=== PATIENT | female | born 1995 | race Hispanic/Latino ===

== ENCOUNTER 2018-09-24 09:04 | Inpatient (IN) | payer BC, OTHER ==
[~2018-09-24] VITALS: Ht 157.5 cm; Wt 53.3 kg
--- OUTSIDE RECORDS SUMMARY | 2018-09-24 09:07 | XMS REPORT | Clinical Summary ---
Author Author [facility] Organization [facility] Address Unknown Phone Unavailable Care Team Providers Care Front Attendant Name Role Phone Kike Wray MD PCP Allergies Comments Active Allergy Reactions Severity Noted Date Sulfamethoxazole-Trimetho Hives 04/07/2017 prim Medications End Date Status Medication Sig Dispensed Refills Start Date Active ferrous sulfate 325 (65 Take 325 mg 0 FE) MG tablet by mouth daily with breakfast. Active Problems Problem Noted Date IUGR (intrauterine growth restriction) affecting care of mother, third 05/01/2017 trimester, fetus 1 Oligohydramnios in third trimester 05/01/2017 37 weeks gestation of 05/01/2017 Immunizations Name Dates Previously Given Next Due FLUCELVAX QUAD PF (0.5mL 05/02/2017 syringe) Rho (D) Immune Globulin 05/02/2017 Tdap 05/02/2017, 11/08/2016 Family History Medical History Relation Name Comments No Known Problems Brother No Known Problems Father No Known Problems Maternal Grandfather No Known Problems Maternal Grandmother No Known Problems Paternal Grandfather No Known Problems Paternal Grandmother No Known Problems Sister Relation Name Status Comments Brother Alive Father Alive Maternal Grandfather Alive Maternal Grandmother Alive PTSD Mother Alive epilepsy Paternal Grandfather Alive Paternal Grandmother Alive Sister Alive Social History Date Tobacco Use Types Packs/Day Years Used Never Smoker Smokeless Tobacco: Never Used Alcohol Use Drinks/Week oz/Week Comments No Sex Assigned at Date Recorded Not on file Industry Job Start Date Occupation Not on file Not on file Not on file Travel End Travel History Travel Start No recent travel history available. Last Filed Vital Signs Not on file Plan of Treatment Health Maintenance Due Date Last Done Comments CHLAMYDIA SCREENING 11/25/2017 11/25/2016 INFLUENZA VACCINE 09/30/2018 05/02/2017 Results Not on fileafter 09/23/2017 Insurance Type Payer Benefit Subscriber ID Effective Phone Address Plan / Dates Group PPO BCBS BCBS xxxxxxxxxxxx 2015- CHOICE Present PPO/SENAIT CHAVEZ PPO Advance Directives Patient has advance care planning documents, and code status on file. For more i nformation, please contact: Kirk Blackwood [address] [place] [address] Date Inactivated Comments Code Status Date Activated 05/04/2017 6:53 PM Full Code 05/01/2017 4:26 PM Code Status decision reached by: Patient 04/08/2017 3:50 AM Full Code 04/07/2017 10:12 PM Code Status decision reached by: Patient
--- OUTSIDE RECORDS SUMMARY | 2018-09-24 09:07 | XMS REPORT ---
Author Author [facility] Address Unknown Phone Unavailable Care Team Providers Care Calender Operator Name Role Phone Unavailable Unavailable Problems This patient has no known problems. Allergies, Adverse Reactions, Alerts This patient has no known allergies or adverse reactions. Medications This patient has no known medications. Results Test Description Test Time Test Comments Text Results Atomic Results Result Comments US OB <14 WEEKS 2016-11-08 23:16:[address] [address]FOPKBASZMR IMAGING REPORTPatient Name: VU SRate of Service: [id number]: 21 Sex: F Order #: [id number] Room: ERDOB: 1995 X-Ray Number: [id number] Record Number: [id number] Hospital Number: [id number] Physician: JUAN VALDESOrdering Physician: TAPAN ARANGO OBSTETRICAL FIRST TRIMESTER 10:30 PMHistory: Back pain.Findings:There is a single living intrauterine at approximately 11 weeks6 daysFetal heart rate is 174 bpm.There is no subchorionic hemorrhage.The placenta is suboptimally assessed due to early gestational age.The amniotic fluid volume appears adequate.The ovaries were not visualized.IMPRESSION:Single living intrauterine at approximately 11 weeks 6 days. bycurrent sonographic measurements.Electronically Signed By: Leroy Caal M.D., 11/08/2016 11:14 PMLegally authenticated by SARA MCCLOUD 2016-11-08 23:14:19
[2018-09-24 09:32] LABS: BILIRUBIN,URINE SMALL (NEGATIVE); CLARITY,URINE SL CLOUDY (CLEAR); LEUKOCYTE ESTERASE ,URINE TRACE (NEGATIVE); NITRITE,URINE POSITIVE (NEGATIVE); PROTEIN,URINE DIPSTICK 2+ (NEGATIVE); URINE UROBILINOGEN 4 mg/dL (0.2 - 1)
[2018-09-24 09:33] LABS: COLOR,URINE ORANGE (YELLOW); KETONES,URINE 2+ (NEGATIVE)
[2018-09-24 09:38] LABS: BASOPHILS % 0.1 % (0.0-1.0); HEMATOCRIT 30.4 % (34.2-44.1); HEMOGLOBIN 8.5 g/dL (12.0-16.0); LYMPHOCYTES # (AUTO) 0.7 (1.0-3.2); MEAN CORPUSCULAR HEMOGLOBIN 19.8 pg (28-32); MEAN CORPUSCULAR VOLUME 70.7 fL (81-99); MONOCYTES # (AUTO) 0.6 (0.2-0.8); MONOCYTES % 5.4 % (4.4-11.3); NEUTROPHILS # (AUTO) 9.7 (2.1-6.9); NEUTROPHILS % 88.1 % (38.7-80.0); PLATELET COUNT 301 x10e3/uL (140-360); RED CELL DISTRIBUTION WIDTH 17.5 % (11.7-14.4)
[2018-09-24 09:47] LABS: ALANINE AMINOTRANSFERASE 13 IU/L (0-55); ALBUMIN 4.2 g/dL (3.5-5.0); ALBUMIN/GLOBULIN RATIO 1.1 (0.8-2.0); ALKALINE PHOSPHATASE 77 IU/L (40-150); ANION GAP 15.8 mmol/L (8-16); BLOOD UREA NITROGEN 9 mg/dL (7-26); BUN/CREATININE RATIO 9 (6-25); CALCIUM 9.7 mg/dL (8.4-10.2); CARBON DIOXIDE 21 mmol/L (22-29); CHLORIDE 104 mmol/L (98-107); CREATININE, SERUM 0.98 mg/dL (0.57-1.11); EST GLOMERULAR FILTRATION RATE > 60 ML/MIN (60-); GLUCOSE 108 mg/dL (74-118); POTASSIUM 3.8 mmol/L (3.5-5.1); SODIUM 137 mmol/L (136-145)
[2018-09-24 09:49] LABS: BACTERIA,URINE MODERATE /HPF; EPITHELIAL CELLS,URINE RARE /LPF; WBC,URINE (MAN) >50 /HPF (0-5)
[2018-09-24] MEDS ORDERED: SODIUM CHLORIDE 0.9% 1000ML 1,000 ML IV SCH (10:00)
[2018-09-24] MEDS ORDERED: PHENAZOPYRIDINE HCL 100 MG TAB PO ONE (10:30)
[2018-09-24] MEDS ORDERED: KETOROLAC TROMETHAMINE 30 MG/ML VIAL IV ONE (10:30)
[2018-09-24] MEDS ORDERED: CEFTRIAXONE SOD 1 GM/NS 50 ML 50 ML IV ONE (10:30)
[2018-09-24 10:40] LABS: HYPOCHROMASIA SLIGHT; PLATELET ESTIMATE ADEQUATE; PLATELET MORPHOLOGY COMMENT NORMAL; RBC MORPHOLOGY COMMENT NORMAL
[2018-09-24] MEDS ORDERED: ONDANSETRON HCL INJ 2MG/ML 2ML 2 MG/ML VIAL IV STA (11:22)
[2018-09-24] MEDS ORDERED: ONDANSETRON HCL INJ 2MG/ML 2ML 2 MG/ML VIAL IV ONE (11:45)
--- NOTE | 2018-09-24 12:01 | Diagnostic Imaging Report ---
EXAM: CT Abdomen and Pelvis WITH intravenous contrast INDICATION: Right flank pain COMPARISON: None. TECHNIQUE: Abdomen and pelvis were scanned utilizing a multidetector helical scanner from the lung base to the pubic symphysis after administration of IV contrast. Coronal and sagittal reformations were obtained. Routine protocol was performed. Scan was performed when during portal venous phase. IV CONTRAST: 100mL of Isovue 370 ORAL CONTRAST: Water COMPLICATIONS: None RADIATION DOSE: Total DLP: 219.0 mGy*cm Dose modulation, iterative reconstruction, and/or weight based adjustment of the mA/kV was utilized to reduce the radiation dose to as low as reasonably achievable. FINDINGS: LOWER THORAX: No focal consolidation. The heart is not enlarged. HEPATOBILIARY: No focal hepatic lesions. No biliary ductal dilatation. The gallbladder appears unremarkable. SPLEEN: No splenomegaly. PANCREAS: No focal masses or ductal dilatation. ADRENALS: No adrenal nodules. KIDNEYS/URETERS: There is decreased enhancement of the right kidney with mild right hydroureteronephrosis. There is a 4 mm obstructing calculus at the right ureterovesical junction. The left kidney enhances normally with no hydronephrosis or renal calculi. PELVIC ORGANS/BLADDER: Unremarkable. PERITONEUM / RETROPERITONEUM: No free air or fluid. LYMPH NODES: No lymphadenopathy. VESSELS: Unremarkable. GI TRACT: No distention or wall thickening. BONES AND SOFT TISSUES: Unremarkable. IMPRESSION: Right ureterovesical junction 4 mm obstructing calculus with upstream mild right hydroureteronephrosis and decreased irregular renal parenchymal enhancement consistent with pyelonephritis. Signed by: Jesse Good MD on 09/24/2018 11:58 AM
[2018-09-24] MEDS ORDERED: MORPHINE SULFATE INJ 4 MG/ML INJ 1ML IV PRN (12:15)
--- OUTSIDE RECORDS SUMMARY | 2018-09-24 12:18 | XMS REPORT | Clinical Summary ---
Author Author [facility] Address Unknown Phone Unavailable Care Team Providers Care Toy Maker Name Role Phone Kike Wray MD PCP [...] more i nformation, please contact: Kirk Blackwood [address] [place] [address] Date Inactivated Comments Code Status Date Activated 05/04/2017 6:53 PM Full Code 05/01/2017 4:26 PM Code Status decision reached by: Patient 04/08/2017 3:50 AM Full Code 04/07/2017 10:12 PM Code Status decision reached by: Patient
[2018-09-24] MEDS ORDERED: SODIUM CHLORIDE 0.9% 50ML 50 ML ONE (12:25)
[2018-09-24] MEDS ORDERED: IOPAMIDOL 370 MG/ML 200 ML INFUS..BTL INJ ONE (12:25)
[2018-09-24] MEDS: SODIUM CHLORIDE 0.9% 1000ML 1,000 ML IV SCH ×2 (12:58→21:25)
[2018-09-24 15:00] VITALS: BP 110/57
[2018-09-24 15:55] VITALS: BP 110/57
[2018-09-24 16:00] VITALS: BP 110/57
[2018-09-24 19:30] VITALS: BP 97/61
[2018-09-24 21:29] VITALS: BP 97/61
[2018-09-24] MEDS: MORPHINE SULFATE INJ 4 MG/ML INJ 1ML IV PRN (22:39)
[2018-09-24] MEDS: ONDANSETRON HCL INJ 2MG/ML 2ML 2 MG/ML VIAL IV PRN (22:39)
[2018-09-24 23:40] VITALS: BP 104/71
[2018-09-25] VITALS (7 sets, daily range): BP systolic 105–119; BP diastolic 65–86
[2018-09-25] MEDS: SODIUM CHLORIDE 0.9% 1000ML 1,000 ML IV SCH ×3 (05:24→23:51)
[2018-09-25 05:59] LABS: BASOPHILS % 0.4 % (0.0-1.0); EOSINOPHILS # (AUTO) 0.1 (0.0-0.4); EOSINOPHILS % 1.3 % (0.0-6.0); HEMATOCRIT 26.6 % (34.2-44.1); HEMOGLOBIN 7.3 g/dL (12.0-16.0); LYMPHOCYTES # (AUTO) 2.5 (1.0-3.2); LYMPHOCYTES % 36.2 % (18.0-39.1); MEAN CORPUSCULAR HEMOGLOBIN 19.7 pg (28-32); MEAN CORPUSCULAR HGB CONC 27.4 g/dL (31-35); MEAN CORPUSCULAR VOLUME 71.7 fL (81-99); MONOCYTES # (AUTO) 0.5 (0.2-0.8); MONOCYTES % 7.6 % (4.4-11.3); NEUTROPHILS # (AUTO) 3.7 (2.1-6.9); NEUTROPHILS % 54.1 % (38.7-80.0); PLATELET COUNT 269 x10e3/uL (140-360); RED BLOOD COUNT 3.71 x10e6/uL (3.6-5.1); RED CELL DISTRIBUTION WIDTH 17.8 % (11.7-14.4)
[2018-09-25 06:36] LABS: ALANINE AMINOTRANSFERASE 9 IU/L (0-55); ALBUMIN 3.1 g/dL (3.5-5.0); ALKALINE PHOSPHATASE 59 IU/L (40-150); ANION GAP 10.8 mmol/L (8-16); BLOOD UREA NITROGEN 7 mg/dL (7-26); BUN/CREATININE RATIO 10 (6-25); CALCIUM 8.5 mg/dL (8.4-10.2); CARBON DIOXIDE 22 mmol/L (22-29); CHLORIDE 110 mmol/L (98-107); EST GLOMERULAR FILTRATION RATE > 60 ML/MIN (60-); GLUCOSE 85 mg/dL (74-118); POTASSIUM 3.8 mmol/L (3.5-5.1); SODIUM 139 mmol/L (136-145)
--- NOTE | 2018-09-25 07:05 | NUR ---
SPOKE WITH MD FARIAS WHO ORDERED TO PLACE PT NPO (KUB ORDER) PT IS ON IB FLUIDS NOW. DENIES PAIN WILL CONTINUE TO MONITOR CLOSELY SIDE RAILSX2, BED WHEELS LOCKED, CALL LIGHT IS WITHIN EASY REACH INSTRUCTED TO CALL FOR ASSISTANCE IF NEEDED
--- NOTE | 2018-09-25 08:04 | Consultation ---
DATE OF CONSULTATION: 09/24/2018 Urology Consultation REASON FOR CONSULTATION: Renal colic. HISTORY OF PRESENT ILLNESS: Ines Barber is a 23-year-old woman, who has never had any urological issues. The patient had severe right-sided flank pains and some dysuria. She reported to the neighbor's emergency room, where she was evaluated only with urinalysis according to the patient. There was no imaging performed. The patient was given antibiotics and treated for a urinary tract infection. The patient's symptomatology did not mariely. She reported to the emergency room, where she was found to have obstructing ureterolithiasis. PAST MEDICAL AND SURGICAL HISTORY: 1. 1, para 1 by section. 2. Status post incision and drainage of right groin abscess. ALLERGIES: NONE KNOWN. CURRENT MEDICATIONS: Please refer to the MAR. SOCIAL HISTORY: The patient denies smoking, ethanol, and drug use. 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 She has supportive family at the bedside. FAMILY HISTORY: Noncontributory to the urological problems. REVIEW OF SYSTEMS: Discussed as above in the history of present illness and past medical history, otherwise negative for all systems. PHYSICAL EXAMINATION: GENERAL: Healthy-appearing 23-year-old woman, lying in bed, in no apparent distress. VITAL SIGNS: She is currently afebrile. Vitals are currently stable. ABDOMEN: Soft, nondistended. It is tender in the right flank with some mild right-sided costovertebral angle tenderness. Kidneys ARE not palpable without hepatosplenomegaly. No obvious evidence of hernia. For the remaining physical examination systems, please refer to the admission history and physical as well as the ERT sheet. LABORATORY STUDIES: CT scan of the abdomen and pelvis reveals a 4-mm stone at the right ureterovesical junction. Unfortunately, this was a study that was done with contrast. White blood cell count is 10,960, hemoglobin 8.5, platelets 301,000. The patient's creatinine is normal at 0.7. Urinalysis significant for nitrite positive urine with greater than 50 wbc's, 6-10 rbc's, moderate bacteria. Urine culture should have been ordered. ASSESSMENT: 1. Right renal colic. 2. Urinary tract infection. 3. Right ureterolithiasis. 4. Right hydroureteronephrosis. 5. Leukocytosis. 6. Anemia. 7. Urinary tract infection. 8. Microhematuria. PLAN: 1. Instructed the emergency room physician to make sure that the patient's urine is being strained with every void. 2. IV hydration. 3. IV analgesia. 4. IV antibiotics. 5. We will await the urine culture and sensitivity. 6. Should the patient fail to pass her stone or remain asymptomatic, cystoscopy and stent placement will be indicated. Thank you very much for involving us in the care of your patient. We will be happy to follow her along with you as well as an outpatient. Mike MD Jessica OH/MODL /[id number] cc: Kike Wray MD
--- NOTE | 2018-09-25 09:42 | Diagnostic Imaging Report ---
Exam: KUB - 2 views Clinical History: CT abdomen/pelvis 09/24/2018. Comparison: None. Findings: Bowel gas obscures visualization of the pelvis, limiting evaluation of the previously noted right UVJ stone. No evidence of calcification overlying the kidneys. Nonobstructive bowel gas pattern. No evidence of free intraperitoneal air. Impression: Bowel gas obscures visualization of the pelvis, limiting evaluation of the previously noted right UVJ stone. Signed by: Dr. Miguel Xiao MD on 09/25/2018 9:38 AM
[2018-09-25] MEDS ORDERED: GENTAMICIN 120MG/NS 100ML 100 ML IV ONE (11:45)
[2018-09-25] MEDS: CEFTRIAXONE SOD 1 GM/NS 50 ML 50 ML IV SCH (13:05)
[2018-09-25] MEDS ORDERED: IOPAMIDOL 610MG/1ML 300 MG/ML VIAL IV ONE (14:55)
[2018-09-25] MEDS ORDERED: B&O 60MG R/S 60 MG SUPP PR ONE (14:55)
--- NOTE | 2018-09-25 15:13 | NUR ---
OFF OF UNIT FOR OR VIA BED AT THIS TIME
--- NOTE | 2018-09-25 16:02 | NUR ---
CM WENT INTO ROOM FOR DPA AND PT IS CURRENTLY IN SURGERY CM TO FOLLOW
[2018-09-25] MEDS ORDERED: ACETAMINOPHEN/CODEINE 300MG - 30MG TAB PO PRN (17:15)
[2018-09-25] MEDS ORDERED: HYDROMORPHONE 2MG/ML 2 MG/ML ML ONE (18:02)
--- NOTE | 2018-09-25 18:13 | NUR ---
RECEIVED REPORT FROM MAY IN RECOVERY AWAITING FOR PT TO ARRIVE TO FLOOR
[2018-09-25] MEDS: PHENAZOPYRIDINE HCL 100 MG TAB PO SCH (18:34)
--- NOTE | 2018-09-25 18:39 | NUR ---
RECEIVED PT TO FLOOR FROM PACU AA0X3 PT IS C/O OF BURNING TO SITE. SCHEDULED PYRIDIUM GIVEN IV FLUIDS CONNECTED TO HER RIGHT AC 20 G CLEAN AND DRY FAMILY IS AT BEDSIDE GIVEN SANDWICH, DRINK, AND JELLO FOR REGULAR DIET WILL CONTINUE TO MONITOR PT CLOSELY SIDE RAILSX2, BED WHEELS LOCKED,CALL LIGHT IS WITHIN EASY REACH INSTRUCTED TO CALL FOR ASSISTANCE IF NEEDED
[2018-09-25] MEDS ORDERED: ONDANSETRON HCL INJ 2MG/ML 2ML 2 MG/ML VIAL ONE (19:39)
[2018-09-25] MEDS ORDERED: MIDAZOLAM HCL 2 MG/2 ML VIAL ONE (19:39)
[2018-09-25] MEDS ORDERED: DEXAMETHASONE SOD PHOS INJ 4 MG/ML VIAL ONE (19:39)
[2018-09-25] MEDS ORDERED: FENTANYL CITRATE/PF 100MCG/2 ML INJ ONE (19:39)
[2018-09-25] MEDS ORDERED: PROPOFOL IV EMULSION 10 MG/ML 20 ML VIAL ONE (19:39)
[2018-09-25] MEDS ORDERED: LIDOCAINE HCL 2% LOCAL INJ 5 ML SDV VIAL INJ ONE (19:39)
[2018-09-25] MEDS ORDERED: SEVOFLURANE INHAL SOLN 250 ML PEN BTL ONE (19:39)
[2018-09-25] MEDS: ONDANSETRON HCL INJ 2MG/ML 2ML 2 MG/ML VIAL IV PRN ×2 (19:46→23:30)
[2018-09-25] MEDS: MORPHINE SULFATE INJ 4 MG/ML INJ 1ML IV PRN ×2 (19:46→23:30)
[2018-09-25 20:47] LABS: HEMATOCRIT 31.6 % (34.2-44.1); HEMOGLOBIN 8.8 g/dL (12.0-16.0)
[2018-09-26] VITALS: BP 102/62
[2018-09-26] MEDS: SODIUM CHLORIDE 0.9% 1000ML 1,000 ML IV SCH ×2 (04:08→08:08)
[2018-09-26 04:20] VITALS: BP 114/71
[2018-09-26] MEDS: MORPHINE SULFATE INJ 4 MG/ML INJ 1ML IV PRN (05:20)
[2018-09-26 05:43] LABS: BASOPHILS % 0.1 % (0.0-1.0); HEMATOCRIT 29.4 % (34.2-44.1); LYMPHOCYTES # (AUTO) 0.9 (1.0-3.2); LYMPHOCYTES % 8.9 % (18.0-39.1); MEAN CORPUSCULAR HEMOGLOBIN 19.6 pg (28-32); MEAN CORPUSCULAR HGB CONC 27.2 g/dL (31-35); MEAN CORPUSCULAR VOLUME 72.1 fL (81-99); MONOCYTES # (AUTO) 0.5 (0.2-0.8); MONOCYTES % 4.7 % (4.4-11.3); NEUTROPHILS # (AUTO) 8.9 (2.1-6.9); NEUTROPHILS % 85.8 % (38.7-80.0); PLATELET COUNT 284 x10e3/uL (140-360); RED BLOOD COUNT 4.08 x10e6/uL (3.6-5.1); RED CELL DISTRIBUTION WIDTH 17.5 % (11.7-14.4)
[2018-09-26] MEDS: ONDANSETRON HCL INJ 2MG/ML 2ML 2 MG/ML VIAL IV PRN (05:52)
[2018-09-26 06:04] LABS: ANION GAP 13.1 mmol/L (8-16); BLOOD UREA NITROGEN 7 mg/dL (7-26); BUN/CREATININE RATIO 10 (6-25); CALCIUM 9.2 mg/dL (8.4-10.2); CARBON DIOXIDE 22 mmol/L (22-29); CHLORIDE 106 mmol/L (98-107); CREATININE, SERUM 0.69 mg/dL (0.57-1.11); EST GLOMERULAR FILTRATION RATE > 60 ML/MIN (60-); GLUCOSE 100 mg/dL (74-118); POTASSIUM 4.1 mmol/L (3.5-5.1); SODIUM 137 mmol/L (136-145)
[2018-09-26 07:48] VITALS: BP 101/62
[2018-09-26 07:50] VITALS: BP 101/62
[2018-09-26] MEDS: PHENAZOPYRIDINE HCL 100 MG TAB PO SCH ×2 (07:50→13:43)
[2018-09-26] MEDS ORDERED: DOCUSATE SODIUM 100 MG CAP PO SCH (09:00)
[2018-09-26] MEDS ORDERED: OXYBUTYNIN CHLORIDE 5 MG TAB PO SCH (09:00)
[2018-09-26] MEDS ORDERED: ZOFRAN8 MG PO (10:49)
[2018-09-26] MEDS ORDERED: TYLENOL WITH C1 EACH PO (10:50)
[2018-09-26] MEDS ORDERED: HEMOCYTE PLUS1 EACH PO (10:50)
[2018-09-26] MEDS ORDERED: MACRODANTIN100 MG PO (10:51)
[2018-09-26] MEDS ORDERED: DITROPAN XL5 MG PO (10:51)
--- NOTE | 2018-09-26 11:17 | NUR ---
spoke with md walton if ok with releasing pt per md pena wrote for dc orders states no he will see pt today later thius afternoon and decide
--- NOTE | 2018-09-26 11:18 | Discharge Summary ---
PRIMARY CARE PHYSICIAN: Kike Wray M.D. COOKER MEAL: Mike Lopez M.D. FINAL DIAGNOSES: 1. Right hydronephrosis secondary to kidney stone with obstruction. 2. Status post ureteral stent placement. 3. Urinary tract infection. 4. Chronic anemia secondary to administration and most likely diet with lack of iron. HISTORY OF PRESENT ILLNESS: A 23 years old female with chronic anemia. The patient came in with more importantly right renal colic associated with urethral obstruction with pain. The patient had 4 mm obstructive stone. The patient underwent cystoscopy and stent placement to the right ureter. She is doing much better. Pain controlled. At this time, she is stable. She will go home today. She has prescription for Macrobid, Tylenol No.3, and Ditropan. We will add on Zofran and Hemocip Plus twice a day for her anemia. Discussed with the patient on repeat lab work with Dr. Kike Wray. I discussed with the patient on followup with Dr. Mike Lopez per his instruction. The patient will need stent and stone management. MD MAURY Martin/BERTO /[id number]
[2018-09-26 11:34] VITALS: BP 109/61
[2018-09-26] MEDS: CEFTRIAXONE SOD 1 GM/NS 50 ML 50 ML IV SCH (11:40)
--- NOTE | 2018-09-26 15:25 | NUR ---
MD FARIAS ROUNDED AND OK PT DISCHARGE DC INSTRUCTIONS AND PRESCRIPTIONS GIVEN PT VERBALIZED UNDERSTANDING IV DC PRESSURE DRESSING APPLIED AND TAPED PT IS OFF UNIT TO HOME
--- NOTE | 2018-11-25 08:52 | Operative Report ---
DATE OF PROCEDURE: 09/25/2018 SURGEON: Mike Lopez MD PREOPERATIVE DIAGNOSES: 1. Right hydronephrosis. 2. Urinary tract infection. 3. Microhematuria. POSTOPERATIVE DIAGNOSES: 1. Right ureteral stricture. 2. Right hydronephrosis due to stricture. 3. Urinary tract infection. 4. Microscopic hematuria. 5. Minimal cystocele. OPERATIONS PERFORMED: 1. Cystourethroscopy with bilateral ureteral catheterization and retrograde ureteropyelography (separate procedure performed for hematuria and drug infections). 2. Right ureteroscopy with dilation of ureteral stricture (separate procedure performed for the diagnosis of stricture). 3. Radiological services for supervision and interpretation of ureteroscopy. 4. Cystourethroscopy with insertion of right indwelling ureteral stent (separate procedure performed to relieve the hydronephrosis). 5. Pelvic examination under anesthesia. ANESTHESIA: General. COMPLICATIONS: None. CLINICAL SUMMARY: Please refer to the consultation dictation from the prior date. OPERATIVE PROCEDURE IN DETAIL: Informed consent was verified. Ines Barber was properly identified, taken to the operating, and placed on the cystoscopy table in supine position. Anesthesia was uneventfully begun. The patient was then carefully and gently positioned in the dorsal lithotomy position with all pressure points were padded. Her genitalia were prepared and draped in usual sterile fashion. The cystoscope sheath with the obturator in place was atraumatically inserted into the patient's urethra and bladder was drained. Endoscopy of the urinary bladder revealed no suspicious mucosal lesions, no tumors, no stones, and no diverticula, normally positioned configured ureteral orifices were identified. Ureteral catheter was used to cannulate each ureter and retrograde ureteral pyelograms were performed. Guidewire was then placed into the right ureter and guided to the level of the patient's kidney. The ureteroscope was then placed over the guidewire and guided into the distal right ureter. There was narrowing and stricture at the location where the stone was noted on CT. We dilated across the stricture with the ureteroscope. The ureter proximal to that appeared to be unremarkable. With cystoscopic and fluoroscopic guidance, a right-sided indwelling ureteral stent was then placed. It was coiled into the patient's kidneys as well as the patient's bladder. The retaining sutures were cut short. Interpretation of retrograde ureteropyelography contrast was instilled in retrograde fashion bilaterally. There was some fullness of the right collecting system with some dilation of the right ureter compared to the left. Stent was in good position, coiled into the patient's kidneys as well as the patient's bladder at the end of the case. The patient's bladder was drained. Cystoscope was withdrawn. Pelvic examination revealed minimal cystocele. There is no rectocele. No abnormal palpable pelvic masses could be appreciated. A belladonna and opium suppository were placed. The patient was uneventfully reversed from anesthesia and taken to recovery in stable condition. There were no complications to the procedure. She tolerated the procedure well. Explicit postoperative instructions were given. Following this hospital course, we will plan to return the patient to the operating room in approximately 1 month to remove her stent, perform ureteroscopy and ensure no additional stone burden remains. Mike Lopez MD [place]/MODL /[id number] cc: Kike Wray MD
== END 2018-09-26 15:21 | disposition home or self-care (01) | DRG 661 ==
LOC: ER 09:04 → ERHOLD 12:16 → MED/SURG2 14:49
PROVIDERS: ADMIT Internal Medicine; ATTEND Internal Medicine
PROC: 0T778ZZ Dilation of Left Ureter, Via Natural or Artificial Opening Endoscopic (ICD-10-PCS; 2018-09-25)
PROC: BT141ZZ Fluoroscopy of Kidneys, Ureters and Bladder using Low Osmolar Contrast (ICD-10-PCS; 2018-09-25)
PROC: 0T7D8ZZ Dilation of Urethra, Via Natural or Artificial Opening Endoscopic (ICD-10-PCS; 2018-09-25)
PROC: 0T768DZ Dilation of Right Ureter with Intraluminal Device, Via Natural or Artificial Opening Endoscopic (ICD-10-PCS; principal; 2018-09-25 16:20)
DX: N13.6 Pyonephrosis (principal); N39.0 Urinary tract infection, site not specified; D50.8 Other iron deficiency anemias; R31.29 Other microscopic hematuria; N35.92 Unspecified urethral stricture, female; N81.10 Cystocele, unspecified
CPT/HCPCS: 36415; 74018; 74177; 74420; 80048; 80053; 81001; 83970; 84550; 84702; 85014; 85018; 85025; 86850; 86870; 86880; 86900; 86905; 87086; 99001; 99284; C1758; C1766; C1874; J0696; J1100; J1580; J1885; J2001; J2250; J2270; J2405; J3010; J7030; Q9967

== ENCOUNTER 2018-10-09 14:23 | Inpatient (IN) | payer BC ==
[~2018-10-09] VITALS: Ht 157.5 cm; Wt 58.1 kg
[~2018-10-09 14:23] MED LIST: DITROPAN XL5 MG PO; HEMOCYTE PLUS1 EACH PO; MACRODANTIN100 MG PO; TYLENOL WITH C1 EACH PO; ZOFRAN8 MG PO
--- OUTSIDE RECORDS SUMMARY | 2018-10-09 14:25 | XMS REPORT | Clinical Summary ---
Author Author [facility] Address Unknown Phone Unavailable Care Team Providers Care Tenter Frame Back Tender Name Role Phone Kike Wray MD PCP [...] VACCINE 09/30/2018 05/02/2017 Results Not on fileafter 10/08/2017 Insurance Type Payer Benefit Subscriber ID Effective Phone Address Plan / Dates Group PPO BCBS BCBS xxxxxxxxxxxx 2015- CHOICE Present PPO/SENAIT CHAVEZ PPO Advance Directives Patient has advance care planning documents, and code status on file. For more i nformation, please contact: Kirk Blackwood [address] [place] [address] Date Inactivated Comments Code Status Date Activated 05/04/2017 6:53 PM Full Code 05/01/2017 4:26 PM Code Status decision reached by: Patient 04/08/2017 3:50 AM Full Code 04/07/2017 10:12 PM Code Status decision reached by: Patient
[2018-10-09] MEDS ORDERED: SODIUM CHLORIDE 0.9% 1000ML 1,000 ML IV STA ×3 (14:56→17:05)
[2018-10-09] MEDS ORDERED: IBUPROFEN 600 MG TAB PO ONE (15:00)
[2018-10-09] MEDS ORDERED: ACETAMINOPHEN 325 MG TAB PO ONE (15:00)
[2018-10-09 15:02] LABS: BILIRUBIN,URINE NEGATIVE (NEGATIVE); CLARITY,URINE CLOUDY (CLEAR); COLOR,URINE YELLOW (YELLOW); KETONES,URINE NEGATIVE (NEGATIVE); LEUKOCYTE ESTERASE ,URINE SMALL (NEGATIVE); NITRITE,URINE NEGATIVE (NEGATIVE); URINE UROBILINOGEN 1 mg/dL (0.2 - 1)
[2018-10-09 15:10] LABS: PROTEIN,URINE DIPSTICK 3+ (NEGATIVE)
[2018-10-09 15:14] LABS: BACTERIA,URINE MODERATE /HPF; EPITHELIAL CELLS,URINE FEW /LPF
[2018-10-09 16:07] LABS: BASOPHILS % 0.1 % (0.0-1.0); HEMATOCRIT 27.6 % (34.2-44.1); HEMOGLOBIN 8.3 g/dL (12.0-16.0); LYMPHOCYTES # (AUTO) 0.5 (1.0-3.2); LYMPHOCYTES % 4.5 % (18.0-39.1); MEAN CORPUSCULAR HEMOGLOBIN 21.7 pg (28-32); MEAN CORPUSCULAR HGB CONC 30.1 g/dL (31-35); MEAN CORPUSCULAR VOLUME 72.1 fL (81-99); MONOCYTES # (AUTO) 0.5 (0.2-0.8); MONOCYTES % 4.6 % (4.4-11.3); PLATELET COUNT 208 x10e3/uL (140-360); RED BLOOD COUNT 3.83 x10e6/uL (3.6-5.1); RED CELL DISTRIBUTION WIDTH 22.2 % (11.7-14.4)
[2018-10-09 16:20] LABS: ALANINE AMINOTRANSFERASE 22 IU/L (0-55); ALBUMIN/GLOBULIN RATIO 0.8 (0.8-2.0); ALKALINE PHOSPHATASE 80 IU/L (40-150); ANION GAP 13.6 mmol/L (8-16); BLOOD UREA NITROGEN 14 mg/dL (7-26); BUN/CREATININE RATIO 15 (6-25); CALCIUM 9.4 mg/dL (8.4-10.2); CARBON DIOXIDE 22 mmol/L (22-29); CHLORIDE 100 mmol/L (98-107); CREATININE, SERUM 0.93 mg/dL (0.57-1.11); EST GLOMERULAR FILTRATION RATE > 60 ML/MIN (60-); GLUCOSE 124 mg/dL (74-118); POTASSIUM 3.6 mmol/L (3.5-5.1); SODIUM 132 mmol/L (136-145)
--- NOTE | 2018-10-09 16:44 | Diagnostic Imaging Report ---
EXAM: CT Abdomen and Pelvis WITHOUT contrast INDICATION: ^r/o pyelo ^[id number] ^[id number] COMPARISON: CT dated 09/24/2018 TECHNIQUE: Abdomen and pelvis were scanned utilizing a multidetector helical scanner from the lung base to the pubic symphysis without administration of IV contrast. Absence of intravenous contrast decreases sensitivity for detection of focal lesions and vascular pathology. Coronal and sagittal reformations were obtained. Routine protocol was performed. IV CONTRAST: None ORAL CONTRAST: None. COMPLICATIONS: None RADIATION DOSE: Total DLP: 184.38 mGy*cm Estimated effective dose: (DLP x 0.015 x size factor) mSv CTDIvol has been reviewed. It is below the limits set by the Radiation Protocol Committee (RPC). FINDINGS: LINES and TUBES: Right nephroureteral stent in appropriate position. LOWER THORAX: Unremarkable HEPATOBILIARY: Unenhanced liver is unremarkable. No biliary ductal dilation. GALLBLADDER: No radio-opaque stones or sludge. No wall thickening. SPLEEN: Borderline splenomegaly. PANCREAS: No focal masses or ductal dilatation. ADRENALS: No adrenal nodules KIDNEYS/URETERS: No hydronephrosis. Limited for evaluation of renal parenchyma without intravenous contrast. Minimal right perinephric fat stranding. No stones. GI TRACT: No abnormal distention, wall thickening, or evidence of bowel obstruction. Appendix is normal. PELVIC ORGANS/BLADDER: Unremarkable. LYMPH NODES: No lymphadenopathy. VESSELS: Unremarkable. PERITONEUM / RETROPERITONEUM: No free air or fluid. BONES: Unremarkable. SOFT TISSUES: Unremarkable. IMPRESSION: 1. Interval placement of right nephroureteral stent which is in desired position. No right hydronephrosis. Previously seen right ureterovesical junction calculus is no longer visualized. 2. Persistent minimal right perinephric fat stranding. Limited for evaluation of renal parenchyma without intravenous contrast. 3. No definite acute inflammatory process identified in the abdomen/pelvis, considering limitations of unenhanced study. Signed by: Dr. Colby Chou MD on 10/09/2018 4:40 PM
[2018-10-09] MEDS ORDERED: LEVOFLOXACIN 750MG/D5W 150ML 150 ML IV STA (16:51)
[2018-10-09] MEDS ORDERED: ONDANSETRON HCL INJ 2MG/ML 2ML 2 MG/ML VIAL IV NR (17:05)
[2018-10-09] MEDS ORDERED: MORPHINE SULFATE INJ 4 MG/ML INJ 1ML IV NR (17:05)
--- NOTE | 2018-10-09 17:15 | NUR ---
DOSE FOR GENTAMYCIN REVERIFYED BY DR. REZA BARRIENTOS. PHARMACY QUESTIONED THE DOSE SINCE HIGH RISK FOR OTOTOXICITY. STATES THAT DR SALAZAR IS HER DOCTOR AND VERIFYED WITH HIM 4 TIMES OF THE DOSE, DR. SALAZAR AWARE OF PATIENT ONLY 117 PUNDS SINCE HE OPERATED ON PATIENT.
[2018-10-09] MEDS ORDERED: GENTAMICIN SULFATE IV ONE (17:30)
[2018-10-09] MEDS ORDERED: SODIUM CHLORIDE 0.9% IV ONE (17:30)
[2018-10-09 21:03] LABS: BAND NEUTROPHILS % (MANUAL) 5 %; HYPOCHROMASIA SLIGHT; LYMPHOCYTES % (MANUAL) 3 % (19-48); MONOCYTES % (MANUAL) 4 % (3.4-9.0); NEUTROPHILS % (MANUAL) 88 % (40-74)
[2018-10-09 21:04] LABS: ANISOCYTOSIS SLIGHT
[2018-10-09 21:05] LABS: MICROCYTOSIS SLIG; PLATELET ESTIMATE ADEQUATE; PLATELET MORPHOLOGY COMMENT NORMAL
--- OUTSIDE RECORDS SUMMARY | 2018-10-09 21:54 | XMS REPORT | Clinical Summary ---
Author Author [facility] Address Unknown Phone Unavailable Care Team Providers Care Digital Cartographer Name Role Phone Kike Wray MD PCP [...] more i nformation, please contact: Kirk Blackwood [address] [place] [address] Date Inactivated Comments Code Status Date Activated 05/04/2017 6:53 PM Full Code 05/01/2017 4:26 PM Code Status decision reached by: Patient 04/08/2017 3:50 AM Full Code 04/07/2017 10:12 PM Code Status decision reached by: Patient
[2018-10-09] MEDS: SODIUM CHLORIDE 0.9% 1000ML 1,000 ML IV SCH (22:06)
[2018-10-09] MEDS: PIPER-TAZ 3.375 GM / NS 50ML IV SCH (22:07)
[2018-10-09 23:42] VITALS: BP 93/50
[2018-10-10] VITALS (9 sets, daily range): BP systolic 93–102; BP diastolic 43–68
--- NOTE | 2018-10-10 00:39 | NUR ---
PT C/O NUMBNESS TO BILATERAL ARMS,PT STATED "I HAVE NO SENSATION IN MY ARMS".V/S TAKEN(DOCUMENTED UNDER VITAL SIGNS).PT HAD GOOD AND EQUAL STRENGTH IN BOTH UPPER EXTREMITIES.CALL PLACED TO DR WILKINS AND NOTIFIED ABOUT PT C/O OF NUMBNESS/NO SENSATION TO BOTH ARMS.NO NEW ORDERS RECEIVED FROM DR WILKINS,STATED THAT HE WILL LOOK AT IT THE MORNING.CALL LIGHT WITHIN EASY REACH.WILL CONTINUE TO MONITOR.
[2018-10-10] MEDS: ACETAMINOPHEN 325 MG TAB PO PRN ×2 (00:44→06:45)
[2018-10-10] MEDS: ONDANSETRON HCL INJ 2MG/ML 2ML 2 MG/ML VIAL IV PRN ×3 (00:45→19:42)
[2018-10-10] MEDS: SODIUM CHLORIDE 0.9% 1000ML 1,000 ML IV SCH ×3 (06:17→21:45)
[2018-10-10] MEDS: PIPER-TAZ 3.375 GM / NS 50ML IV SCH ×3 (06:17→21:33)
[2018-10-10] MEDS ORDERED: SODIUM CHLORIDE 0.9% 500ML 500 ML IV SCH (06:22)
--- NOTE | 2018-10-10 06:23 | NUR ---
PT C/O SEVERE HEADACHE,REQUESTING MEDICATION FOR HEADACHE OTHER THAN TYLENOL.V/S CHECKED TEMP 100.4, BP 93/43,HR 125, R 17, O2 SAT 100% ON ROOM AIR.CALL PLACED TO DR WILKINS AND NOTIFIED ABOUT PT C/O SEVERE HEADACHE AND NOTIFIED PT'S VITAL SIGNS.N/O RECEIVED TO BOLUS NS 500 ML X 1.ORDER ENTERED.
[2018-10-10 06:39] LABS: ALANINE AMINOTRANSFERASE 30 IU/L (0-55); ALBUMIN 2.8 g/dL (3.5-5.0); ALBUMIN/GLOBULIN RATIO 0.8 (0.8-2.0); ALKALINE PHOSPHATASE 75 IU/L (40-150); ANION GAP 16.4 mmol/L (8-16); BLOOD UREA NITROGEN 12 mg/dL (7-26); BUN/CREATININE RATIO 15 (6-25); CALCIUM 8.6 mg/dL (8.4-10.2); CARBON DIOXIDE 13 mmol/L (22-29); CHLORIDE 110 mmol/L (98-107); CREATININE, SERUM 0.81 mg/dL (0.57-1.11); EST GLOMERULAR FILTRATION RATE > 60 ML/MIN (60-); GLUCOSE 76 mg/dL (74-118); POTASSIUM 4.4 mmol/L (3.5-5.1); SODIUM 135 mmol/L (136-145)
--- NOTE | 2018-10-10 07:15 | NUR ---
REPORT GIVEN TO ONCOMING NURSE,WALKING ROUNDS MADE.PT RESTING IN BED WITH NO S/S OF DISTRESS.
[2018-10-10 08:00] LABS: LYMPHOCYTES # (AUTO) 0.4 (1.0-3.2); LYMPHOCYTES % 9.4 % (18.0-39.1); MEAN CORPUSCULAR HEMOGLOBIN 21.9 pg (28-32); MEAN CORPUSCULAR HGB CONC 30.4 g/dL (31-35); MEAN CORPUSCULAR VOLUME 72.1 fL (81-99); MONOCYTES # (AUTO) 0.3 (0.2-0.8); MONOCYTES % 6.1 % (4.4-11.3); NEUTROPHILS # (AUTO) 3.6 (2.1-6.9); NEUTROPHILS % 83.8 % (38.7-80.0); PLATELET COUNT 139 x10e3/uL (140-360); RED BLOOD COUNT 2.97 x10e6/uL (3.6-5.1); RED CELL DISTRIBUTION WIDTH 22.2 % (11.7-14.4)
[2018-10-10 08:08] LABS: HEMOGLOBIN 6.5 g/dL (12.0-16.0)
[2018-10-10 08:09] LABS: HEMATOCRIT 21.4 % (34.2-44.1)
--- NOTE | 2018-10-10 08:11 | NUR ---
Call placed to Dr. Staton regarding SIRS alert. Orders rec'd. Consults called.
[2018-10-10] MEDS ORDERED: ACETAMINOPHEN 1000 MG/100 ML IV NR (08:30)
--- NOTE | 2018-10-10 11:17 | History and Physical ---
PRIMARY CARE PHYSICIAN: Dr. Kike Wray. CONSULTANTS: 1. Dr. Lopez Ponce. 2. Dr. Filomena Conteh. 3. Dr. Eliezer Greer. CHIEF COMPLAINT: Fever since last Thursday, right flank pain and headaches along with generalized weakness. HISTORY OF PRESENT ILLNESS: The patient is a 23-year-old female, who had a kidney stone. The patient was admitted back in September 24, 2018 and subsequently discharged on September 26, 2018. At that time, the patient had right hydronephrosis secondary to kidney stone with obstruction. She is status post ureteral stent placement done by Dr. Mike Lopez and the patient was discharged home with Macrobid, Tylenol No. 3, and Ditropan. The patient was stable. She was doing all well until last Thursday where she developed some low-grade fever and then some right flank pain. The patient did not think much, but she let it go and then subsequently the condition worsened, where she subsequently came to the emergency room. Urinalysis showed cloudy urine, moderate bacteria. test was negative. Her chemistry panel with sodium was 132, BUN and creatinine are normal. Her hematology; WBC was 10, hemoglobin and hematocrit are 8.3 and 27.6. On vital signs, she has high-grade fever 102. Her heart rate went up to 137. Blood pressure dropped down to 99/65. The patient received multiple IV boluses and also now running normal saline at 125 mL an hour. She seemed to be stable. She gets some Tylenol, headache improved but she remained ill with hemoglobin and hematocrit checked up. PAST MEDICAL HISTORY: Chronic anemia secondary to heavy menstruation. She also has recent right ureteral stent secondary to 4 mm stone as mentioned above. SOCIAL HISTORY: The patient does not smoke or use alcohol. No regular drugs. ALLERGIES: NO KNOWN ALLERGIES. HOME MEDICATION: None. PHYSICAL EXAMINATION: VITAL SIGN: T-max is 102, blood pressure 95/61, pulse rate 110, respirations 18. GENERAL: The patient seems more comfortable. HEENT: Normocephalic, atraumatic. Pupils are reactive. Anicteric. NECK: Supple grossly. PULMONARY: Diminished breath sounds, but without wheezing or courses. CARDIOVASCULAR: Tachycardia. ABDOMEN: Soft. Right flank tenderness. No guarding. No distention. EXTREMITIES: No cyanosis or edema. NEUROLOGIC: No gross focal deficit. LABORATORY DATA: Sodium is 132, potassium 3.6, chloride 100, bicarb 22, BUN 14, creatinine 0.9 glucose 124. Liver enzyme is normal. WBC is 10, hemoglobin 8.3 down to 6.5, hematocrit 27.6, platelet is 208. Urinalysis is cloudy urine, moderate bacteria. Influenza are negative. [place] screen negative and test negative. CT scan of abdomen and pelvis showed that the patient had right nephroureteral stent in good position. No right hydronephrosis. Right ureterovesical junction calculus no longer visualized. She however had persistent right perinephric fat straining. IMPRESSION: 1. Severe sepsis with low blood pressure, tachycardia and high fever 102. 2. Right pyelonephritis associated with complicated urinary tract infection with previous stone and recent ureteral stent placement. 3. Anemia, combination of blunt anemia associated with acute illness, but also secondary to chronic recurrent heavy menstruations and infection. PLAN: Continue to monitor the patient closely. The patient may or may not need iron infusion or blood transfusion. We will consult Dr. Filomena Conteh. Consult Dr. Greer for sepsis. Antibiotic, now the patient has taken Zosyn, question whether the patient should take in addition to another broad antibiotic such as either meropenem or vancomycin, but we will defer that dose antibiotics to Infectious Disease, Dr. Greer consult. Check blood culture, urine culture. Tylenol IV for pain, headaches and fever. Continue with IV fluid. Monitor urine output. Dr. Lopez Ponce is already consulted with respect to the patient ureteral stent with infection. The patient is otherwise stable. We will keep the patient on med tele for now. If her condition worsens, she may need to move to ICU, but for the time being she seemed to be stable and little bit better on evaluation. MD MAURY Martin/BERTO /[id number]
[2018-10-10 13:06] LABS: LYMPHOCYTES % (MANUAL) 11 % (19-48); MONOCYTES % (MANUAL) 5 % (3.4-9.0)
[2018-10-10 13:07] LABS: BAND NEUTROPHILS % (MANUAL) 8 %; NEUTROPHILS % (MANUAL) 76 % (40-74); PLATELET ESTIMATE SLIGHTLY DECREASED; PLATELET MORPHOLOGY COMMENT NORMAL
[2018-10-10 13:08] LABS: RBC MORPHOLOGY COMMENT NORMAL
[2018-10-10] MEDS: ACETAMINOPHEN 1000 MG/100 ML IV PRN ×2 (14:38→20:38)
--- NOTE | 2018-10-10 15:33 | Consultation ---
DATE OF CONSULTATION: 10/10/2018 Consultation is called by the emergency room, CHIEF COMPLAINT/REASON CONSULTATION: Stent pyelonephritis. HISTORY OF PRESENT ILLNESS: Ms. Barber is a 23-year-old female patient, who was just recently discharged from the [facility]. The patient was admitted with fevers and chills, nausea, vomiting. Per report, the patient had a urologic procedure by Dr. Mike Lopez, although no operative dictation is in the computer. The patient complains of fevers, chills, nausea, dysuria, or hematuria. Pt states she had a stent placed. nursing notes state ureteroscopy. PAST MEDICAL HISTORY: As above. MEDICATIONS: Please see APR. ALLERGIES: NKDA. SOCIAL HISTORY: Denied smoking or drinking. FAMILY HISTORY: Denied urologic stones or malignancies. REVIEW OF SYSTEMS: Noncontributory other than problems mentioned above for 12 organ systems PHYSICAL EXAMINATION: GENERAL: A young female, lying, in distress. VITAL SIGNS: Temperature 99.7, pulse 110, blood pressure 95/60, and respiration rate 18. HEENT: Sclerae anicteric. NECK: Supple. BACK: Without costovertebral angle tenderness bilaterally. ABDOMEN: Soft. Nontender. Nondistended. No palpable mass. No palpable hernias. No palpable adenopathy. : Normal female external genitalia. EXTREMITIES: No edema. NEUROLOGIC: Moves all 4 extremities. PSYCH: Alert and appropriate. SKIN: Intact. Normal color PERTINENT LABORATORY DATA: Sodium 135, potassium 4.4, chloride 110, bicarb 13, BUN 12, creatinine 0.8, glucose 76. Hemoglobin 6, hematocrit 21, platelet count 139,000, and white cell count 4000. Urinalysis; positive whites, positive reds. IMPRESSION: 1. Ureteral stent. 2. Hydronephrosis. 3. Ureteral calculus. 4. Urinary tract infection. 5. Microscopic hematuria. 6. Pyelonephritis. 7. Septic shock. 8. Profound anemia. 9. Leukopenia. PLAN: Continue supportive care. Per the patient's , she had a stent placed. Per the operative record from nursing, the patient had a ureteroscopy performed, which in the setting of previous infection would be concerning with a recurrent pyelonephritis. there is no operative report dictated at the time of my consultation. We will provide supportive care and follow the patient along with you. MD SCOTTY Christopher/BERTO /[id number]
--- NOTE | 2018-10-10 15:37 | NUR ---
The patient is a 23-year-old female, who had a kidney stone. The patient was admitted back in September 24, 2018 and subsequently discharged on September 26, 2018. At that time, the patient had right hydronephrosis secondary to kidney stone with obstruction. She is status post ureteral stent placement done by Dr. Mike Lopez and the patient was discharged home with Macrobid, Tylenol No. 3, and Ditropan. The patient was stable. She was doing all well until last Thursday where she developed some low-grade fever and then some right flank pain. The patient did not think much, but she let it go and then subsequently the condition worsened, where she subsequently came to the emergency room. Urinalysis showed cloudy urine, moderate bacteria. test was negative. Her chemistry panel with sodium was 132, BUN and creatinine are normal. Her hematology; WBC was 10, hemoglobin and hematocrit are 8.3 and 27.6. On vital signs, she has high-grade fever 102. Her heart rate went up to 137. Blood pressure dropped down to 99/65. The patient received multiple IV boluses and also now running normal saline at 125 mL an hour. She seemed to be stable. She gets some Tylenol, headache improved but she remained ill with hemoglobin and hematocrit checked up. PAST MEDICAL HISTORY: Chronic anemia secondary to heavy menstruation. She also has recent right ureteral stent secondary to 4 mm stone as mentioned above. SOCIAL HISTORY: The patient does not smoke or use alcohol. No regular drugs. [id number]
[2018-10-10] MEDS: VANCOMYCIN 1GM/NS 250 ML 250 ML IV SCH (16:25)
--- NOTE | 2018-10-10 16:44 | Consultation ---
DATE OF CONSULTATION: REASON FOR CONSULTATION: Fever, chills, and headache. HISTORY OF PRESENT ILLNESS: This patient, who is a very pleasant 23-year-old white female, denies any past medical history, comes in with fever, chills, not feeling well, and severe headache. The patient apparently had history of kidney stone before she was back in September 24. She had discharge on September 26. The patient had hydronephrosis secondary to kidney stone before obstruction. She had ureteral stent placed by Dr. Mike Lopez. She did not give me any of this information, this was found after I saw the patient and discussed with her. She says she is in good health when I saw her. She denies any past medical history, but apparently she has history of heavy menstruation. ALLERGIES: NKA. SOCIAL HISTORY: Negative. FAMILY HISTORY: Negative. The patient comes in with fever and chills and headache. When she first came her white count was 10, hemoglobin 8.3, came down to 6.5. She is growing Staph aureus in the urine. Creatinine 0.9, mono screen is negative. Influenza is negative. The patient was started on Zosyn. REVIEW OF SYSTEMS: HEENT: Negative. PULMONARY: Negative. CARDIAC: Negative. : Negative. GI: Negative. IMPRESSION AND PLAN: Sepsis, fever and chills. History of recent kidney infection, now growing staph aureus. We will put the patient on vancomycin. Obtain blood cultures. Recheck CBC. Recheck Chem panel. We will follow with you. MD CESAR Moreno/BERTO /[id number]
--- NOTE | 2018-10-10 21:30 | NUR ---
care of this patient taken over from Daniela MAYERS. report received at this time. patient received awake, alert, lying quietly in bed. no c/o pain noted. ivf infusing without difficulty. patient instructed to call for assistance when needed.
[2018-10-10 21:48] LABS: FERRITIN 291.17 ng/mL (4.63-204.00); FREE T4 (FREE THYROXINE) 0.9 ng/dL (0.8-1.8); THYROID STIMULATING HORMONE 1.221 uIU/mL (0.350-4.940)
[2018-10-11] VITALS (9 sets, daily range): BP systolic 82–116; BP diastolic 52–76
--- NOTE | 2018-10-11 | NUR ---
Report given to Zackary MAYERS at this time.
[2018-10-11] MEDS: IRON SUCROSE 200 MG in SODIUM CHLORIDE 0.9% 100 ML 100 ML IV SCH ×2 (00:31→22:35)
[2018-10-11] MEDS: SODIUM CHLORIDE 0.9% 1000ML 1,000 ML IV SCH ×3 (00:32→23:24)
[2018-10-11] MEDS: VANCOMYCIN 1GM/NS 250 ML 250 ML IV SCH ×2 (02:38→16:35)
[2018-10-11] MEDS: PIPER-TAZ 3.375 GM / NS 50ML IV SCH ×3 (05:12→22:06)
[2018-10-11 06:05] LABS: LYMPHOCYTES # (AUTO) 0.9 (1.0-3.2); LYMPHOCYTES % 16.9 % (18.0-39.1); MEAN CORPUSCULAR HEMOGLOBIN 21.5 pg (28-32); MEAN CORPUSCULAR HGB CONC 29.3 g/dL (31-35); MEAN CORPUSCULAR VOLUME 73.5 fL (81-99); MONOCYTES # (AUTO) 0.4 (0.2-0.8); MONOCYTES % 7.5 % (4.4-11.3); NEUTROPHILS # (AUTO) 4.2 (2.1-6.9); NEUTROPHILS % 74.5 % (38.7-80.0); PLATELET COUNT 175 x10e3/uL (140-360); RED BLOOD COUNT 3.02 x10e6/uL (3.6-5.1); RED CELL DISTRIBUTION WIDTH 22.7 % (11.7-14.4)
[2018-10-11 06:10] LABS: HEMATOCRIT 22.2 % (34.2-44.1); HEMOGLOBIN 6.5 g/dL (12.0-16.0)
[2018-10-11 06:31] LABS: ANION GAP 11.2 mmol/L (8-16); BLOOD UREA NITROGEN 6 mg/dL (7-26); BUN/CREATININE RATIO 8 (6-25); CALCIUM 8.5 mg/dL (8.4-10.2); CARBON DIOXIDE 17 mmol/L (22-29); CHLORIDE 111 mmol/L (98-107); CREATININE, SERUM 0.73 mg/dL (0.57-1.11); EST GLOMERULAR FILTRATION RATE > 60 ML/MIN (60-); GLUCOSE 91 mg/dL (74-118); POTASSIUM 3.2 mmol/L (3.5-5.1); SODIUM 136 mmol/L (136-145)
[2018-10-11 08:16] LABS: BAND NEUTROPHILS % (MANUAL) 6 %; LYMPHOCYTES % (MANUAL) 14 % (19-48); MONOCYTES % (MANUAL) 7 % (3.4-9.0); NEUTROPHILS % (MANUAL) 72 % (40-74)
[2018-10-11 08:17] LABS: ANISOCYTOSIS SLIGHT; OVALOCYTES FEW; PLATELET ESTIMATE ADEQUATE; PLATELET MORPHOLOGY COMMENT NORMAL; POIKILOCYTOSIS MODERATE; RBC MORPHOLOGY COMMENT ABNORMAL
[2018-10-11] MEDS: FOLIC ACID 1 MG TAB PO SCH (09:30)
[2018-10-11] MEDS: ONDANSETRON HCL INJ 2MG/ML 2ML 2 MG/ML VIAL IV PRN ×3 (10:07→19:00)
[2018-10-11] MEDS: ACETAMINOPHEN 325 MG TAB PO PRN ×2 (10:56→19:00)
[2018-10-11] MEDS ORDERED: POTASSIUM CHLORIDE 10MEQ EA PO ONE (11:45)
[2018-10-11] MEDS ORDERED: POTASSIUM CHLORIDE 20 MEQ TAB CR PO ONE (12:00)
[2018-10-11] MEDS: MORPHINE SULFATE 2 MG/ML SYR 1ML IV PRN ×2 (12:18→19:00)
--- NOTE | 2018-10-11 21:10 | NUR ---
DR WEST IS HERE TO ROUND PATIENT. NOTIFIED HGB 6.5. SAID PATIENT DIDN'T NEED BLOOD TRANSFUSION AT THIS TIME. IRON TRANSFUSION FOR NOW
[2018-10-12] VITALS (8 sets, daily range): BP systolic 96–125; BP diastolic 58–84
[2018-10-12] MEDS: VANCOMYCIN 1GM/NS 250 ML 250 ML IV SCH (03:30)
[2018-10-12] MEDS: ACETAMINOPHEN 325 MG TAB PO PRN ×3 (04:01→20:07)
[2018-10-12 05:52] LABS: BASOPHILS % 0.2 % (0.0-1.0); EOSINOPHILS % 0.2 % (0.0-6.0); LYMPHOCYTES # (AUTO) 1.1 (1.0-3.2); LYMPHOCYTES % 19.1 % (18.0-39.1); MEAN CORPUSCULAR HEMOGLOBIN 21.2 pg (28-32); MEAN CORPUSCULAR HGB CONC 29.2 g/dL (31-35); MEAN CORPUSCULAR VOLUME 72.7 fL (81-99); MONOCYTES # (AUTO) 0.6 (0.2-0.8); MONOCYTES % 10.6 % (4.4-11.3); NEUTROPHILS # (AUTO) 3.7 (2.1-6.9); NEUTROPHILS % 66.7 % (38.7-80.0); PLATELET COUNT 212 x10e3/uL (140-360); RED BLOOD COUNT 2.97 x10e6/uL (3.6-5.1); RED CELL DISTRIBUTION WIDTH 23.1 % (11.7-14.4)
[2018-10-12 06:06] LABS: ANION GAP 12.2 mmol/L (8-16); BLOOD UREA NITROGEN 6 mg/dL (7-26); BUN/CREATININE RATIO 8 (6-25); CALCIUM 8.3 mg/dL (8.4-10.2); CARBON DIOXIDE 18 mmol/L (22-29); CHLORIDE 110 mmol/L (98-107); CREATININE, SERUM 0.74 mg/dL (0.57-1.11); EST GLOMERULAR FILTRATION RATE > 60 ML/MIN (60-); GLUCOSE 104 mg/dL (74-118); POTASSIUM 3.2 mmol/L (3.5-5.1); SODIUM 137 mmol/L (136-145)
[2018-10-12 06:09] LABS: HEMATOCRIT 21.6 % (34.2-44.1); HEMOGLOBIN 6.3 g/dL (12.0-16.0)
[2018-10-12] MEDS: PIPER-TAZ 3.375 GM / NS 50ML IV SCH (06:09)
--- NOTE | 2018-10-12 06:26 | NUR ---
SPOKE TO DR WEST ABOUT LOW HGB 6.3, NO ORDER FOR BLOOD TRANSFUSION AT THIS TIME
--- NOTE | 2018-10-12 07:00 | NUR ---
BEDSIDE SHIFT REPORT RECEIVED FROM THE DOUBLE ENDING MACHINE OPERATOR RN. PT FAMILY AT BEDSIDE. PT DENIES NEEDS AT THIS TIME.
[2018-10-12 08:01] LABS: BAND NEUTROPHILS % (MANUAL) 4 %; HYPOCHROMASIA SLIGHT; LYMPHOCYTES % (MANUAL) 9 % (19-48); MONOCYTES % (MANUAL) 7 % (3.4-9.0); NEUTROPHILS % (MANUAL) 80 % (40-74); POIKILOCYTOSIS MODERATE
[2018-10-12 08:02] LABS: ANISOCYTOSIS MODERATE; ELLIPTOCYTE, RBC SLIGHT; OVALOCYTES FEW; PLATELET ESTIMATE ADEQUATE; PLATELET MORPHOLOGY COMMENT NORMAL; RBC MORPHOLOGY COMMENT ABNORMAL
[2018-10-12] MEDS: FOLIC ACID 1 MG TAB PO SCH (09:32)
[2018-10-12] MEDS: SODIUM CHLORIDE 0.9% 1000ML 1,000 ML IV SCH (10:16)
[2018-10-12] MEDS ORDERED: CEFEPIME 1GM/NS 0.9% 50 ML 50 ML IV SCH (10:30)
[2018-10-12] MEDS: MORPHINE SULFATE 2 MG/ML SYR 1ML IV PRN ×2 (11:50→20:57)
--- NOTE | 2018-10-12 12:31 | NUR ---
Right forearm PPD test performed at this time. Bubble created. No c/o pain. Due to be read on . patient informed this is for school and will need a note
[2018-10-12] MEDS ORDERED: TUBERCULIN, PPD INJ 5 TU/0.1 ML INJ ID ONE (13:00)
[2018-10-12] MEDS: CEFAZOLIN SOD 1 GM/NS 50ML 50 ML IV SCH ×2 (13:35→21:01)
[2018-10-12] MEDS: LACTOBACILLUS ACIDOPHILUS CAPSULE PO SCH ×2 (14:12→20:06)
[2018-10-12] MEDS: ONDANSETRON HCL INJ 2MG/ML 2ML 2 MG/ML VIAL IV PRN (17:38)
--- NOTE | 2018-10-12 19:00 | NUR ---
BEDSIDE SHIFT REPORT GIVEN TO THE DISMANTLER RN. PT DENIED FURTHER NEEDS.
--- NOTE | 2018-10-12 19:35 | NUR ---
PATIENT RECEIVED. PATIENT IS RESTING IN BED. RESP EVEN AND UNLABORED. PATIENT C/O HEADACHE. WILL MEDICATE PER MAR. FAMILY AT BED SIDE. CALL LIGHT WITHIN REACH. INSTRUCT TO CALL FOR ASSISTANCE. BED LOW/LOCKED. CONTINUE TO MONITOR CLOSELY
--- NOTE | 2018-10-12 22:17 | Diagnostic Imaging Report ---
Frontal and lateral views of the chest. HISTORY: Fever, cough COMPARISON: None available. DISCUSSION: Lungs: The lungs are well inflated. No evidence of a consolidative pneumonia or pulmonary alveolar edema. Pleura: No pleural effusion or pneumothorax. Heart and mediastinum: The cardiomediastinal silhouette appear(s) unremarkable. Bones and soft tissues: Appear unremarkable. IMPRESSION: No acute radiographic abnormality. Signed by: Dr. Jony Nazraio D.O., M.M.M. on 10/12/2018 10:13 PM
[2018-10-12] MEDS: IRON SUCROSE 200 MG in SODIUM CHLORIDE 0.9% 100 ML 100 ML IV SCH (22:19)
[2018-10-13] VITALS (7 sets, daily range): BP systolic 101–125; BP diastolic 60–74
[2018-10-13] MEDS: CEFAZOLIN SOD 1 GM/NS 50ML 50 ML IV SCH ×3 (05:06→21:10)
[2018-10-13] MEDS: SODIUM CHLORIDE 0.9% 1000ML 1,000 ML IV SCH (05:06)
[2018-10-13 05:27] LABS: BASOPHILS % 0.5 % (0.0-1.0); EOSINOPHILS % 0.3 % (0.0-6.0); HEMATOCRIT 23.6 % (34.2-44.1); HEMOGLOBIN 7.1 g/dL (12.0-16.0); LYMPHOCYTES # (AUTO) 1.1 (1.0-3.2); LYMPHOCYTES % 17.3 % (18.0-39.1); MEAN CORPUSCULAR HEMOGLOBIN 21.6 pg (28-32); MEAN CORPUSCULAR HGB CONC 30.1 g/dL (31-35); MONOCYTES # (AUTO) 0.6 (0.2-0.8); MONOCYTES % 9.6 % (4.4-11.3); NEUTROPHILS # (AUTO) 3.6 (2.1-6.9); NEUTROPHILS % 58.5 % (38.7-80.0); PLATELET COUNT 271 x10e3/uL (140-360); RED BLOOD COUNT 3.28 x10e6/uL (3.6-5.1); RED CELL DISTRIBUTION WIDTH 23.1 % (11.7-14.4)
[2018-10-13] MEDS: ACETAMINOPHEN 325 MG TAB PO PRN ×2 (05:35→20:27)
[2018-10-13 05:42] LABS: BILIRUBIN,URINE NEGATIVE (NEGATIVE); CLARITY,URINE CLEAR (CLEAR); COLOR,URINE YELLOW (YELLOW); LEUKOCYTE ESTERASE ,URINE TRACE (NEGATIVE); NITRITE,URINE NEGATIVE (NEGATIVE); PROTEIN,URINE DIPSTICK TRACE (NEGATIVE); URINE UROBILINOGEN 0.2 mg/dL (0.2 - 1)
[2018-10-13 05:46] LABS: KETONES,URINE 2+ (NEGATIVE)
[2018-10-13 05:57] LABS: BACTERIA,URINE MODERATE /HPF; EPITHELIAL CELLS,URINE MODERATE /LPF
--- NOTE | 2018-10-13 07:00 | NUR ---
BEDSIDE SHIFT REPORT RECEIVED FROM THE MATH TUTOR RN. PT DENIES NEEDS AT THIS TIME.
[2018-10-13 08:09] LABS: HYPOCHROMASIA SLIGHT; LYMPHOCYTES % (MANUAL) 19 % (19-48); MICROCYTOSIS SLIGHT; MONOCYTES % (MANUAL) 10 % (3.4-9.0); NEUTROPHILS % (MANUAL) 71 % (40-74); PLATELET ESTIMATE ADEQUATE; PLATELET MORPHOLOGY COMMENT NORMAL; RBC MORPHOLOGY COMMENT ABNORMAL
[2018-10-13 08:27] LABS: ANISOCYTOSIS MODERATE
[2018-10-13 08:28] LABS: OVALOCYTES FEW
[2018-10-13] MEDS: LACTOBACILLUS ACIDOPHILUS CAPSULE PO SCH ×3 (09:00→21:10)
[2018-10-13] MEDS: FOLIC ACID 1 MG TAB PO SCH (09:00)
[2018-10-13] MEDS: ONDANSETRON HCL INJ 2MG/ML 2ML 2 MG/ML VIAL IV PRN ×2 (14:05→18:30)
--- NOTE | 2018-10-13 16:00 | NUR ---
PAGED DR WILKINS AND REPORTED PT POTASSIUM LEVEL. NEW ORDER RECEIVED.
[2018-10-13] MEDS ORDERED: POTASSIUM CHLORIDE 20 MEQ TAB CR PO ONE (16:07)
[2018-10-13] MEDS: MORPHINE SULFATE 2 MG/ML SYR 1ML IV PRN (18:30)
--- NOTE | 2018-10-13 19:00 | NUR ---
BEDSIDE SHIFT REPORT GIVEN TO THE HADOOP ADMINISTRATOR RN. PT DENIED FURTHER NEEDS.
[2018-10-13] MEDS: IRON SUCROSE 200 MG in SODIUM CHLORIDE 0.9% 100 ML 100 ML IV SCH (21:55)
[2018-10-14] VITALS (7 sets, daily range): BP systolic 111–127; BP diastolic 70–89
[2018-10-14] MEDS: SODIUM CHLORIDE 0.9% 1000ML 1,000 ML IV SCH ×3 (02:01→22:01)
[2018-10-14] MEDS: ACETAMINOPHEN 325 MG TAB PO PRN ×2 (03:40→20:35)
[2018-10-14] MEDS: CEFAZOLIN SOD 1 GM/NS 50ML 50 ML IV SCH ×4 (05:15→21:15)
--- NOTE | 2018-10-14 06:55 | NUR ---
REPORT GIVEN TO ONCOMING NURSE.WALKING ROUNDS MADE. PT RESTING IN BED WITH NO S/S OF DISTRESS.
--- NOTE | 2018-10-14 07:00 | NUR ---
BEDSIDE SHIFT REPORT RECEIVED FROM THE RECORDS TECHNICIAN RN. PT DENIES NEEDS AT THIS TIME.
[2018-10-14] MEDS: LACTOBACILLUS ACIDOPHILUS CAPSULE PO SCH ×3 (08:27→20:37)
[2018-10-14] MEDS: FOLIC ACID 1 MG TAB PO SCH (08:27)
--- NOTE | 2018-10-14 19:00 | NUR ---
BEDSIDE SHIFT REPORT GIVEN TO THE BRIAR CUTTER RN. PT DENIED FURTHER NEEDS.
[2018-10-14] MEDS: IRON SUCROSE 200 MG in SODIUM CHLORIDE 0.9% 100 ML 100 ML IV SCH (22:00)
[2018-10-15 05:02] VITALS: BP 110/64
[2018-10-15] MEDS: CEFAZOLIN SOD 1 GM/NS 50ML 50 ML IV SCH (05:15)
[2018-10-15 05:33] LABS: BASOPHILS # (AUTO) 0.1 (0.0-0.1); BASOPHILS % 0.9 % (0.0-1.0); EOSINOPHILS # (AUTO) 0.1 (0.0-0.4); EOSINOPHILS % 0.8 % (0.0-6.0); HEMATOCRIT 26.3 % (34.2-44.1); HEMOGLOBIN 7.5 g/dL (12.0-16.0); LYMPHOCYTES # (AUTO) 2.2 (1.0-3.2); LYMPHOCYTES % 18.5 % (18.0-39.1); MEAN CORPUSCULAR HEMOGLOBIN 21.6 pg (28-32); MEAN CORPUSCULAR HGB CONC 28.5 g/dL (31-35); MEAN CORPUSCULAR VOLUME 75.8 fL (81-99); MONOCYTES # (AUTO) 0.8 (0.2-0.8); MONOCYTES % 6.8 % (4.4-11.3); NEUTROPHILS # (AUTO) 5.7 (2.1-6.9); NEUTROPHILS % 48.7 % (38.7-80.0); PLATELET COUNT 447 x10e3/uL (140-360); RED BLOOD COUNT 3.47 x10e6/uL (3.6-5.1); RED CELL DISTRIBUTION WIDTH 24.3 % (11.7-14.4)
[2018-10-15 05:46] LABS: ANION GAP 12.6 mmol/L (8-16); BLOOD UREA NITROGEN < 5 mg/dL (7-26); CALCIUM 8.9 mg/dL (8.4-10.2); CARBON DIOXIDE 22 mmol/L (22-29); CHLORIDE 108 mmol/L (98-107); EST GLOMERULAR FILTRATION RATE > 60 ML/MIN (60-); GLUCOSE 95 mg/dL (74-118); POTASSIUM 3.6 mmol/L (3.5-5.1); SODIUM 139 mmol/L (136-145)
[2018-10-15 05:47] LABS: BUN/CREATININE RATIO 7 (6-25)
[2018-10-15] MEDS: SODIUM CHLORIDE 0.9% 1000ML 1,000 ML IV SCH (06:35)
--- NOTE | 2018-10-15 07:15 | NUR ---
BEDSIDE SHIFT REPORT GIVEN TO ONCOMING NURSE.PT RESTING IN BED WITH NO S/S OF DISTRESS.
[2018-10-15 08:26] VITALS: BP 106/66
[2018-10-15] MEDS: FOLIC ACID 1 MG TAB PO SCH (08:39)
[2018-10-15] MEDS: LACTOBACILLUS ACIDOPHILUS CAPSULE PO SCH (08:39)
[2018-10-15 08:40] VITALS: BP 106/66
[2018-10-15] MEDS ORDERED: KEFLEX500 MG PO (09:54)
--- NOTE | 2018-10-15 11:13 | NUR ---
right FA IV discontinued. No signs of infiltration noted. 2x2 gauze and tape placed. Taken via wheelchair by PCT to personal car. AAOX4 to time, person,place, situation. Respirations even and unlabored. Discharge instructions, rx, and all personal belongings taken with patient.
[2018-10-15] MEDS ORDERED: FERROUS SULFATE 325 MG TAB PO SCH (12:00)
--- NOTE | 2018-10-16 06:07 | Discharge Summary ---
PRIMARY CARE PHYSICIAN: Dr. Kike Wray. CONSULTANTS: 1. Dr. Greer. 2. Dr. Lopez Ponce. 3. Dr. Filomena Conteh. FINAL DIAGNOSES: 1. Severe sepsis with right pyelonephritis. No shock. 2. Right ureteral stent associated with complicated urinary tract infection secondary to stent. 3. Severe anemia, both combination of blunt anemia and hemodilution along with acute illness. 4. Electrolyte disorder, corrected. 5. Hypotension, resolved with IV fluid boluses. SUMMARY: The patient is a 23-year-old female with right ureteral stent placement for stone management. She came in quite ill with fever, and hypotensive, respond with normal saline boluses. The patient baseline with low blood pressure in the systolic in the 100 to 120. The patient did have a high fever, she had leukocytosis, but she is also quite anemic. The patient does not have a moderate administration, but she also have blunt anemia secondary to her acute illness. The patient was started on IV antibiotics. Urine culture grew out to be E coli. She did receive iron infusion by Dr. Conteh. The patient is stable. Her fever has resolved. Imaging of the CT abdomen and pelvis show right nephroureteral stent in good position. No hydronephrosis. The previous right ureterovesical junction callus is no longer visualized. There was minimal perinephric fat stranding consistent with pyelonephritis. The patient is stable today. Vital signs; temperature is 98, blood pressure 106/66, pulse rate is 90, and respirations 18. The patient is stable. She has Staphylococcus aureus in the urine culture, it is sensitive to cephalosporin. The patient is stable. She is going home with Keflex 500 mg 3 times a day. Prescription was given by Dr. Greer and the patient to follow up with Dr. Greer in approximately two weeks and she will follow up with Dr. Mike Lopez in approximately [address] Lopez Ponce has been covering for Dr. Mike Lopez, who is out of town. The patient is stable, discharged home. Follow up with primary care physician for medication reconciliation. MD MAURY Martin/BERTO /[id number]
== END 2018-10-15 11:13 | disposition home or self-care (01) | DRG 698 ==
LOC: ER 14:23 → ERHOLD 21:45 → MED/SURG2 23:10
PROVIDERS: ADMIT Internal Medicine; ATTEND Internal Medicine
DX: T83.593A Infection and inflammatory reaction due to other urinary stents, initial encounter (principal); A41.9 Sepsis, unspecified organism; N12 Tubulo-interstitial nephritis, not specified as acute or chronic; N13.6 Pyonephrosis; E87.8 Other disorders of electrolyte and fluid balance, not elsewhere classified; I95.9 Hypotension, unspecified; D72.819 Decreased white blood cell count, unspecified; D50.9 Iron deficiency anemia, unspecified; B95.61 Methicillin susceptible Staphylococcus aureus infection as the cause of diseases classified elsewhere
CPT/HCPCS: 36415; 71046; 74176; 80048; 80053; 81001; 81025; 82607; 82728; 82746; 83540; 83605; 84145; 84439; 84443; 84466; 85025; 86308; 87086; 87186; 87400; 99284; J0690; J0692; J1580; J1756; J2270; J2405; J2543; J3370; J7030; J7040; J7050

== ENCOUNTER → 2018-11-19 | Day surgery (SDC) | payer BC ==
[~2018-11-19] MED LIST changes: +B&O 60MG R/S 60 MG SUPP PR ONE; +CEFTRIAXONE SOD 1 GM/NS 50 ML 50 ML IV ONE; +DEXAMETHASONE SOD PHOS INJ 4 MG/ML VIAL ONE; +FENTANYL CITRATE/PF 100MCG/2 ML INJ ONE; +IOPAMIDOL 610MG/1ML 300 MG/ML VIAL IV ONE; +KEFLEX500 MG PO; +LIDOCAINE HCL 2% LOCAL INJ 5 ML SDV VIAL INJ ONE; +MIDAZOLAM HCL 2 MG/2 ML VIAL ONE; +ONDANSETRON HCL INJ 2MG/ML 2ML 2 MG/ML VIAL ONE; +PROPOFOL IV EMULSION 10 MG/ML 20 ML VIAL ONE; +SEVOFLURANE INHAL SOLN 250 ML PEN BTL ONE
--- OUTSIDE RECORDS SUMMARY | 2018-11-19 06:11 | XMS REPORT | Clinical Summary ---
Author Author [facility] Organization [facility] Address Unknown Phone Unavailable Care Team Providers Care Refrigeration Engine Operator Name Role Phone Kike Wray MD PCP [...] 37 weeks gestation of 05/01/2015 Immunizations Name Administration Dates Next Due FLUCELVAX QUAD PF 05/02/2017 Rho (D) Immune Globulin 05/02/2017 Tdap 05/02/2017, [...] Used Never Smoker Smokeless Tobacco: Never Used Drinks/Week oz/Week Comments Alcohol Use No Sex Assigned at Date Recorded Not on file Industry Job Start Date Occupation Not on file Not on file Not on file Travel End Travel History Travel Start No recent travel history available. 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
--- NOTE | 2018-11-19 08:02 | Diagnostic Imaging Report ---
Abdomen, one view Clinical indication: Preoperative evaluation for stent removal. History of right double-J ureteral stent Comparison: CT of the abdomen and pelvis dated 10/09/2018 Impression: Single view of the abdomen was obtained. There is a right double-J ureteral stent in place. No pathologic calcifications are identified. Regional osseous structures are unremarkable. Bowel gas pattern is nonobstructive. Signed by: Jacobo Espana MD on 11/19/2018 7:59 AM
[2018-11-19 09:20] VITALS: BP 110/67
--- NOTE | 2018-12-28 06:34 | Operative Report ---
DATE OF PROCEDURE: 11/19/2018 SURGEON: Mike Lopez MD PREOPERATIVE DIAGNOSES: 1. History of a right ureteral stricture. 2. Right indwelling ureteral stent. POSTOPERATIVE DIAGNOSES: 1. History of a right ureteral stricture. 2. Right indwelling ureteral stent. 3. A very minimal cephalad cystocele. OPERATIONS PERFORMED: Note, these were all staged procedures as part of multi-staged and multi-step process in managing the patient's above diagnoses. 1. Cystourethroscopy with complicated removal of right indwelling ureteral stent (separate procedure performed for the diagnosis of stent). 2. Right ureteroscopy (separately performed to evaluate for any stricture, any obstruction, or any need for any intervention. 3. Radiological services with supervision and interpretation of ureteroscopy. 4. Interpretation of retrograde ureteropyelography. 5. Supervision of fluoroscopy, no radiologist present. 6. Pelvic examination under anesthesia. ANESTHESIA: General. COMPLICATIONS: None. CLINICAL SUMMARY: Ines Barber is a 23-year-old woman with the above preoperative diagnoses. She has an indwelling ureteral stent and is brought for its removal. She is aware of the risks of bleeding, infection, injury to adjacent structures, need for additional procedures, and elected to proceed. OPERATIVE PROCEDURE IN DETAIL: Informed consent was verified. Ines Barber was properly identified, taken to the operating room, and placed on the cystoscopy table in supine position. Anesthesia was uneventfully begun. The patient was then carefully gently repositioned in the dorsal lithotomy position with all pressure points well padded. Her genitalia were prepared and draped in usual sterile fashion. The 22.5-[place] cystoscope sheath with an obturator in place was atraumatically inserted into the patient's urethra and the bladder was drained. Panendoscopy of the bladder revealed no suspicious mucosal lesions, no tumors, no stones, and no diverticula and normally positioned and configured ureteral orifices were identified. There was a stent emerging from the right ureteral orifice and it was fairly significantly encrusted. A guidewire was then placed alongside the stent and guided to the level of the patient's kidney. The stent was then grasped, completely removed and discarded. Semi-rigid ureteroscope was then placed alongside the wire and guided into the patient's right ureter. The distal portion of the patient's right ureter exhibited no suspicious lesions, no tumors, no recurrence of strictures and no evidence of any abnormality. Flexible ureteroscope was then placed over the guidewire and guided at the level of the patient's kidney. Careful panendoscopy of the intrarenal collecting system revealed a few Del's plaques, but no tumors, no stones, no diverticula. No suspicious lesions were identified. We carefully re-examined the ureter as we exited and it was again unremarkable. Interpretation of retrograde ureteropyelography contrast was instilled in a retrograde fashion via the ureteroscope. There was some mild fullness of the upper collecting system with mild calyceal blunting. The ureter was unremarkable. Unobstructed drainage was observed on the right-hand side fluoroscopically. The patient's bladder was drained and cystoscope was withdrawn. Pelvic examination revealed a very minimal cephalad cystocele, but no tumors, no stones, and no diverticula. No abnormal palpable pelvic masses, but there were no tumors palpable. There were no obvious mucosal lesions noted. A belladonna and opium suppository were placed. The patient was uneventfully reversed from anesthesia and taken to the recovery room in stable condition. There were no complications at the end of the procedure. She tolerated the procedure well. Explicit postoperative instructions were given. We will follow the patient up in the office as well as indefinitely. Mike Lopez MD [place]/MODL /[id number] cc: Kike Wray MD
== END | disposition home or self-care (01) ==
LOC: OR 05:16
PROVIDERS: ATTEND Urology
DX: Z46.6 Encounter for fitting and adjustment of urinary device (principal); N81.10 Cystocele, unspecified; N28.89 Other specified disorders of kidney and ureter; Z87.448 Personal history of other diseases of urinary system; Z88.1 Allergy status to other antibiotic agents
CPT/HCPCS: 52351; 74018; 74420; 81025; J0696; J1100; J2001; J2250; J2405; J2704; J3010; Q9967